=== PATIENT | female | born 1980 | race Caucasian/White ===

== ENCOUNTER 2016-07-15 05:57 | Emergency (ER) | payer OTHER ==
[~2016-07-15] VITALS: Ht 167.6 cm; Wt 99.8 kg
[~2016-07-15 05:57] MED LIST: AMOXIL500 MG PO; ANTIVERT 12.512.5 MG PO; BACTRIM DS 8001 TAB PO; ZOFRAN ODT4 MG SL
--- NOTE | 2016-07-15 06:20 | ED GI/GU/ABDOMINAL COMPLAINT ---
History of Present Illness General Chief Complaint: General Adult Stated Complaint: "HAVEN'T BEEN ABLE TO MOVE BOWELS IN 6 DAYS" PERPT Source: patient, family, old records Exam Limitations: no limitations Vital Signs & Intake/Output Vital Signs & Intake/Output Vital Signs Date Time Temp Pulse Resp B/P B/P Pulse O2 O2 Flow FiO2 Mean Ox Delivery Rate 07/15 1103 98.5 85 20 122/80 97 Room Air 07/15 0830 98.3 88 20 124/78 96 Room Air 07/15 0623 98.0 97 22 115/84 95 Room Air Allergies Coded Allergies: NO KNOWN ALLERGIES (12/13/13) Reconcile Medications Amoxicillin (Amoxil) 500 MG CAP 1 TAB PO BID CELLULITIS Meclizine (Antivert) 12.5 MG TABLET 1 TAB PO TID VERTIGO Ondansetron (Zofran Odt) 4 MG TAB.RAPDIS 1 TAB SL Q8 NAUSEA Sulfamethoxazole/Trimethopri (Bactrim Ds 800 MG-160 MG) 1 TAB TAB 1 TAB PO BID CELLULITIIS Triage Nurses Notes Reviewed? yes ? N Is pt currently ? No HPI: Patient had a cervical fusion performed just over a week ago. Patient was taking pain medication but then it began to make her constipated so she stopped taking them and began taking laxatives. Patient has still been unable to her bowels. Patient states that she has not moved her bowels in the past 6 days. She is now getting crampy abdominal pain left lower quadrant. The pain is constant. The pain radiates into her rectal area. Pain is 10 out of 10. There is no nausea or vomiting. (RAHUL KAUFMAN,JM Copeland) Past History Travel History Traveled to [place] past 21 day No Medical History Any Pertinent Medical History? none Surgical History Surgical History: spinal fusion Psychosocial History What is your primary language Swedish Tobacco Use: Never used ETOH Use: occasional use Illicit Drug Use: denies illicit drug use Family History Hx Contributory? No (RAHUL KAUFMAN,JM Copeland) Review of Systems Review of Systems Constitutional: Reports: no symptoms. EENTM: Reports: no symptoms. Respiratory: Reports: no symptoms. Cardiovascular: Reports: no symptoms. GI: Reports: see HPI, abdominal pain. Genitourinary: Reports: no symptoms. Musculoskeletal: Reports: no symptoms. Skin: Reports: no symptoms. Neurological/Psychological: Reports: no symptoms. Hematologic/Endocrine: Reports: no symptoms. Immunologic/Allergic: Reports: no symptoms. All Other Systems: Reviewed and Negative (RAHUL KAUFMAN,JM Copeland) Physical Exam Physical Exam General Appearance: well developed/nourished, alert, awake, anxious, severe distress Head: atraumatic, normal appearance Eyes: Bilateral: PERRL, EOMI. Ears, Nose, Throat, Mouth: hearing grossly normal, moist mucous membrane Neck: normal inspection, supple, full range of motion Respiratory: normal breath sounds, chest non-tender, no respiratory distress, lungs clear Cardiovascular: regular rate/rhythm, normal peripheral pulses Gastrointestinal: normal bowel sounds, soft, non-tender, no organomegaly Back: normal inspection, normal range of motion Extremities: normal range of motion Neurologic/Psych: no motor/sensory deficits, awake, alert, oriented x 3, normal mood/affect Skin: intact, normal color, warm/dry Core Measures ACS in differential dx? No Severe Sepsis Present: No Septic Shock Present: No (RAHUL KAUFMAN,JM Copeland) Progress Differential Diagnosis: bowel obstruction, colon cancer, SBO Plan of Care: Orders Procedure Date/time Status Enema 07/15 114 Active Enema 07/15 618 Active URINALYSIS 07/15 618 Complete HUMAN BETA HCG SCREEN 07/15 618 Complete COMPREHENSIVE METABOLIC PANEL 07/15 618 Complete CBC WITHOUT DIFFERENTIAL 07/15 618 Complete Laboratory Tests 07/15/16 0800: Urine Color YEL, Urine Clarity CLEAR, Urine pH 7.0, Ur Specific [place] 1.010, Urine Protein NEG, Urine Ketones NEG, Urine Nitrite NEG, Urine Bilirubin NEG, Urine Urobilinogen 0.2, Ur Leukocyte Esterase NEG, Ur Microscopic SEDIMENT EXAMINED, Urine RBC 1-3, Urine WBC 1-3 H, Ur Epithelial Cells RARE, Urine Bacteria FEW H, Micro UA Comment TRICHOMONAS SEEN H, Urine Hemoglobin TRACE- INTACT, Urine Glucose NEG 07/15/16 0709: Anion Gap 12, Estimated GFR > 60, BUN/Creatinine Ratio 11.4, Glucose 114 H, Calcium 8.7, Total Bilirubin 0.5, AST 17, ALT 41, Alkaline Phosphatase 99, Total Protein 6.4, Albumin 3.5, Globulin 2.9, Albumin/Globulin Ratio 1.2, Total Beta HCG NEGATIVE, CBC w Diff MAN DIFF ORDERED, RBC 4.86, MCV 90.2, MCH 29.3, RDW 12.4, MPV 8.8, Gran % 74.9, Lymphocytes % 15.2 L, Monocytes % 7.1, Eosinophils % 2.3, Basophils % 0.5, Absolute Granulocytes 12.7 H, Absolute Lymphocytes 2.6, Absolute Monocytes 1.2 H, Absolute Eosinophils 0.4, Absolute Basophils 0.1, Platelet Estimate ADEQUATE, Normocytic RBCs VERIFIED, Normochromic RBCs VERIFIED , PUBS MCHC 32.5 L Initial ED EKG: none Hand-Off Endorsed To: HAZEL KAUFMAN,CHEYANNE Henao Endorsed Time: 0700 Pending: CT, labs Comments: Patient sister very concerned because the mother just recently from cancer and her symptoms started with severe constipation. (RAHUL KAUFMAN,JM Copeland) Diagnostic Imaging: Discussed w/RAD: CT Scan. Radiology Impression: PATIENT: LIOR JEWELL PRESENT AGE: 35 PATIENT ACCOUNT NO: [id number] : 78 LOCATION: [facility] ORDERING PHYSICIAN: CHEYANNE OLIVA MD SERVICE DATE: 07/15/16 EXAM TYPE: CAT - CT ABD & PELVIS W ORAL & IV CO EXAMINATION: CT ABDOMEN AND PELVIS WITH CONTRAST CLINICAL INFORMATION: Constipation. Family history of colon cancer. COMPARISON: Pelvis CT 09/12/2007. TECHNIQUE: Multidetector volumetric imaging was performed of the abdomen and pelvis before and after the IV administration of 95 mL of Optiray 320 intravenous contrast. No contrast reaction is reported on the paperwork provided. Sagittal and coronal reformatted images were obtained on the technologist's workstation. DLP: 1433 mGy-cm. FINDINGS: There is discoid atelectasis inferiorly in the right middle lobe and in the costophrenic angle right lower lobe posterior medially. LUNGS: Lung bases are otherwise clear. There are 2 under 1 cm low-density lesions superiorly in the right lobe of the liver too small for definitive characterization both of which most likely represent small cysts. SPLEEN: Spleen appears unremarkable. PANCREAS, GALLBLADDER, AND BILIARY TREE: Unremarkable. There is an indeterminate 4.0 x 3.5 cm left adrenal lesion with Hounsfield unit measurements in the 50s. RIGHT ADRENAL GLAND AND KIDNEYS: Unremarkable. URETERS AND URINARY BLADDER: Unremarkable. RECTOSIGMOID: Is stool-filled. Remaining colon is also stool- filled. APPENDIX: Not definitively identified. No inflammatory changes are seen in the right lower quadrant. There is an 8.8 x 5.3 x 5.5 cm left adnexal cyst. There is a small fat-containing right adnexal lesion measuring 1.1 cm suggesting a small underlying dermoid. Uterus appears unremarkable. There is no intraperitoneal free fluid or lymphadenopathy. Imaging through the retroperitoneum is unremarkable without evidence of significant atherosclerotic changes, aneurysm, or lymphadenopathy. There are degenerative changes in the left lumbar spine most notably in the lower 2 levels with mild grade 1 anterolisthesis of L4 on L5 assuming 5 lumbar type vertebra. Anterior abdominal wall: There is a tiny periumbilical hernia containing only mesenteric fat. IMPRESSION: 1. Subsegmental atelectasis right middle lobe and left lower lobe. 2. There are 2 under 1 cm hypodensities in the right lobe of the liver, likely small cysts. 3. A 4 cm maximal dimension left adrenal nodule is indeterminate but likely benign. There are various recommendations for management and followup. Based upon a combination of expert imaging consensus and science center display builder input (AJR :206,August 2015) if the patient has no known malignancy hormonal evaluation is recommended. Some of the adrenal lesions of this size secrete hormones including cortisol. Annual hormonal testing for [place] syndrome has been suggested for 4 years. Repeat imaging may be obtained in 12 months. MR imaging could also be performed to further evaluate. 4. Colon is stool-filled. 5. Moderate-sized left adnexal cyst, small fat-containing right adnexal lesion. MR imaging and/or follow-up ultrasound imaging should be considered. METAL WEATHER STRIPPER consultation should also be considered. 6. Degenerative changes lower lumbar spine. DICTATED BY: JUAN SMITH MD DATE/TIME DICTATED:07/15/161049 FILM MASKER:ASHWINI DATE/TIME TRANSCRIBED:07/15/161049 CONFIDENTIAL, DO NOT COPY WITHOUT APPROPRIATE AUTHORIZATION. <Electronically signed in Other Vendor System> SIGNED BY: JUAN SMITH MD 07/15/16 1146 Comments: 07/15/2016 7:10:37 AM patient signed out to me by Dr. Hernández at shift oversize load pilot escort. 07/15/2016 11:41:31 AM I have updated Lior on her test results we are still awaiting the CAT scan report. She complains of the need to have a bowel movement but she is unable to do so here in the emergency department despite an enema here and the use of [id number] preparations such as MiraLAX prior. I will order a soapsuds enema. 07/15/2016 12:20:23 PM Lior has had a large bowel movement here in the emergency department. I feel she is now capable of returning home on a bowel regimen and outpatient follow-up with her primary care physician. (HAZEL KAUFMAN,CHEYANNE Henao) Departure Departure Condition: Stable Referrals: KIRA KAUFMAN,CAROLINA Copeland (PCP/Family) Departure Forms: Customer Survey General Discharge Information (RAHUL KAUFMAN,JM Copeland) Departure Disposition: HOME OR SELF CARE Clinical Impression Primary Impression: Lower abdominal pain, unspecified Secondary Impressions: Constipation Qualifiers: Constipation type: drug induced constipation Qualified Code: K59.03 - Drug induced constipation Lesion of adrenal gland Liver lesion Trichomonas infection Additional Instructions: Metronidazole as prescribed. Prescriptions: Current Visit Scripts Metronidazole (Flagyl) 1 TAB PO Q6 #28 TAB (HAZEL KAUFMAN,CHEYANNE Henao)
[2016-07-15 07:37] LABS: ABSOLUTE BASOPHIL COUNT 0.1 /CUMM (0.0-0.2); ABSOLUTE EOSINOPHIL COUNT 0.4 /CUMM (0.0-0.7); ABSOLUTE GRANULOCYTE CT 12.7 /CUMM (1.4-6.5); ABSOLUTE LYMPH COUNT 2.6 /CUMM (1.2-3.4); ABSOLUTE MONOCYTE COUNT 1.2 /CUMM (0.10-0.60); BASOPHIL % 0.5 % (0.0-2.0); EOSINOPHIL % 2.3 % (0-5); GRANULOCYTE % 74.9 % (42.2-75.2); HEMATOCRIT 43.8 % (37-47); MEAN CORPUSCULAR HGB 29.3 PG (27.0-31.0); MEAN CORPUSCULAR HGB CONC 32.5 G/DL (33.0-37.0); MEAN CORPUSCULAR VOLUME 90.2 FL (81.0-99.0); MEAN PLATELET VOLUME 8.8 FL (7.4-10.4); PLATELET COUNT 274 /CUMM (130-400); RBC DISTRIBUTION WIDTH 12.4 % (11.5-14.5); RED BLOOD CELL CT 4.86 /CUMM (4.20-5.40); WHITE BLOOD CELL COUNT 16.9 /CUMM (4.8-10.8)
[2016-07-15 11:03] VITALS: BP 122/80
--- NOTE | 2016-07-15 11:46 | CT SCAN REPORT ---
EXAMINATION: CT ABDOMEN AND PELVIS WITH CONTRAST CLINICAL INFORMATION: Constipation. Family history of colon cancer. COMPARISON: Pelvis CT 09/12/2007. TECHNIQUE: Multidetector volumetric imaging was performed of the abdomen and pelvis before and after the IV administration of 95 mL of Optiray 320 intravenous contrast. No contrast reaction is reported on the paperwork provided. Sagittal and coronal reformatted images were obtained on the technologist's workstation. DLP: 1433 mGy-cm. FINDINGS: There is discoid atelectasis inferiorly in the right middle lobe and in the costophrenic angle right lower lobe posterior medially. LUNGS: Lung bases are otherwise clear. There are 2 under 1 cm low-density lesions superiorly in the right lobe of the liver too small for definitive characterization both of which most likely represent small cysts. SPLEEN: Spleen appears unremarkable. PANCREAS, GALLBLADDER, AND BILIARY TREE: Unremarkable. There is an indeterminate 4.0 x 3.5 cm left adrenal lesion with Hounsfield unit measurements in the 50s. RIGHT ADRENAL GLAND AND KIDNEYS: Unremarkable. URETERS AND URINARY BLADDER: Unremarkable. RECTOSIGMOID: Is stool-filled. Remaining colon is also stool-filled. APPENDIX: Not definitively identified. No inflammatory changes are seen in the right lower quadrant. There is an 8.8 x 5.3 x 5.5 cm left adnexal cyst. There is a small fat-containing right adnexal lesion measuring 1.1 cm suggesting a small underlying dermoid. Uterus appears unremarkable. There is no intraperitoneal free fluid or lymphadenopathy. Imaging through the retroperitoneum is unremarkable without evidence of significant atherosclerotic changes, aneurysm, or lymphadenopathy. There are degenerative changes in the left lumbar spine most notably in the lower 2 levels with mild grade 1 anterolisthesis of L4 on L5 assuming 5 lumbar type vertebra. Anterior abdominal wall: There is a tiny periumbilical hernia containing only mesenteric fat. IMPRESSION: 1. Subsegmental atelectasis right middle lobe and left lower lobe. 2. There are 2 under 1 cm hypodensities in the right lobe of the liver, likely small cysts. 3. A 4 cm maximal dimension left adrenal nodule is indeterminate but likely benign. There are various recommendations for management and followup. Based upon a combination of expert imaging consensus and head porter baggage input (AJR :206August 2015) if the patient has no known malignancy hormonal evaluation is recommended. Some of the adrenal lesions of this size secrete hormones including cortisol. Annual hormonal testing for [place] syndrome has been suggested for 4 years. Repeat imaging may be obtained in 12 months. MR imaging could also be performed to further evaluate. 4. Colon is stool-filled. 5. Moderate-sized left adnexal cyst, small fat-containing right adnexal lesion. MR imaging and/or follow-up ultrasound imaging should be considered. GLOVE OPERATOR consultation should also be considered. 6. Degenerative changes lower lumbar spine.
[2016-07-15] MEDS ORDERED: FLAGYL500 MG PO (12:22)
== END 2016-07-15 12:35 ==
LOC: ERH 05:57
PROVIDERS: Emergency Medicine
DX: K59.00 Constipation, unspecified (principal); I89.9 Noninfective disorder of lymphatic vessels and lymph nodes, unspecified; K76.9 Liver disease, unspecified; A59.9 Trichomoniasis, unspecified
CPT/HCPCS: 74177; 81001; 96361; 96374; J1885

== ENCOUNTER 2016-09-07 09:06 | Emergency (ER) | payer OTHER ==
[~2016-09-07] VITALS: Ht 175.3 cm; Wt 113.4 kg
[~2016-09-07 09:06] MED LIST changes: +FLAGYL500 MG PO
--- NOTE | 2016-09-07 09:42 | ED UPPER/LOWER EXTREMITY COMPL ---
History of Present Illness General Chief Complaint: Hip Injury Stated Complaint: RIGHT HIP PAIN THAT RADIATES DOWN RLE, X 7 DAYS Source: patient Exam Limitations: no limitations Vital Signs & Intake/Output Vital Signs & Intake/Output Vital Signs Date Time Temp Pulse Resp B/P B/P Pulse O2 O2 Flow FiO2 Mean Ox Delivery Rate 09/07 1152 97.3 77 20 142/89 98 Room Air 09/07 1044 97.0 88 18 140/72 96 Room Air 09/07 0911 97.2 127 28 97 Room Air Room Air Allergies Coded Allergies: NO KNOWN ALLERGIES (12/13/13) Reconcile Medications Amoxicillin (Amoxil) 500 MG CAP 1 TAB PO BID CELLULITIS Meclizine (Antivert) 12.5 MG TABLET 1 TAB PO TID VERTIGO Methylprednisolone. (Medrol) 4 MG TAB.DS.PK 1 DP PO AD hip pain 6 on day 1 then reduce by one tablet daily until gone Metronidazole (Flagyl) 500 MG TABLET 1 TAB PO Q6 URINE INFECTION Ondansetron (Zofran Odt) 4 MG TAB.RAPDIS 1 TAB SL Q8 NAUSEA Sulfamethoxazole/Trimethopri (Bactrim Ds 800 MG-160 MG) 1 TAB TAB 1 TAB PO BID CELLULITIIS Triage Note: TRIAGE: 35 Y/O FEMALE PRESENTS C/O 12/30 RIGHT THIGH PAIN X1 WEEK. REPORTS "I'VE BEEN TAKING PAIN MEDICINE AND MUSCLE RELAXERS FOR THE LAST WEEK - I CAN'T PEE, I CAN'T SLEEP, I CAN'T DO ANYTHING BUT LAY THERE ON MY STOMACH." REFUSES TO SIT IN TRIAGE. ABLE TO AMBULATE WITHOUT MUCH DIFFICULTY. Triage Nurses Notes Reviewed? yes Onset: Abrupt Duration: day(s): (1), week(s):, constant, continues in ED Severity: moderate, severe Pain/Injury Location: Right: Hip. No Modifying Factors: none : No Patient currently breastfeeds: No HPI: 35-year-old female comes into emergency room with complaints of right hip pain/ leg pain. Patient reports that the pain is located in the right side of her hip that radiates down to her knee but does not cross her knee. It is located on the side of her leg. She denies any falls or trauma. She reports some associated numbness tingling with that. Pain with walking. Denies any low back pain. No urinary bowel dysfunction. Denies any other associated symptoms. Patient reports that she's been taking 20 Motrin tabs a day with no relief for the past week. When asked further about whether she's been taking actually 20 tabs she says yes she's been taking 16-20 tabs daily. (BETO DE SOUZA) Past History Travel History Traveled to [place] past 21 day No Medical History Any Pertinent Medical History? 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 No (BETO DE SOUZA) Review of Systems Review of Systems Constitutional: Reports: no symptoms. EENTM: Reports: no symptoms. Respiratory: Reports: no symptoms. Cardiovascular: Reports: no symptoms. Gastrointestinal/Abdominal: Reports: no symptoms. Genitourinary: Reports: no symptoms. Musculoskeletal: Reports: see HPI. Skin: Reports: no symptoms. Neurological/Psychological: Reports: no symptoms. Hematologic/Endocrine: Reports: no symptoms. Immunological: Reports: no symptoms. All Other Systems: Reviewed and Negative (BETO DE SOUZA) Physical Exam Physical Exam General Appearance: well developed/nourished, mild distress Head: atraumatic Eyes: Bilateral: normal appearance. Ears, Nose, Throat: normal ENT inspection, hearing grossly normal Neck: normal inspection, supple Cardiovascular/Respiratory: regular rate/rhythm Back: normal inspection Hip Right: normal range of motion, tenderness Neurologic/Tendon: normal sensation, normal motor functions, normal tendon functions, responds to pain, no evidence tendon injury, no pulse deficit Skin: intact, normal color, warm/dry Lymphatic: no anterior cervical ron (BETO DE SOUZA) Progress Differential Diagnosis: cellulitis, contusion, dislocation, fracture, gout, sprain, tendon injury, myalgia paresthetica Plan of Care: Orders Procedure Date/time Status Add-on Test (ER Only) 09/[address] LUMB SPINE WO IV CONTRAST 09/07 1137 Active ED CRISIS PSYCH CONSULT 09/07 1123 Active Add-on Test (ER Only) 09/07 1116 Active ED CRISIS PSYCH CONSULT 09/07 1116 Active HUMAN BETA HCG SCREEN 09/07 1020 Complete ETHANOL 09/07 1020 Complete COMPREHENSIVE METABOLIC PANEL 09/07 0942 Complete CBC WITHOUT DIFFERENTIAL 09/07 0942 Complete Current Medications Sig/Alice Start time Last Medication Dose Stop Time Status Admin Hydromorphone HCl 2 MG ONCE ONE 09/07 1500 UNVr (Dilaudid) 09/07 1501 Laboratory Tests 09/07/16 1116: Methadone Screen Cancelled, Barbiturate Screen Cancelled, Ur Phencyclidine Scrn Cancelled, Amphetamines Screen Cancelled, U Benzodiazepines Scrn Cancelled, Urine Cocaine Screen Cancelled, Urine Cannabis Screen Cancelled, Urine Test Cancelled 09/07/16 1020: Anion Gap 9, Estimated GFR > 60, BUN/Creatinine Ratio 16.7, Glucose 82, Calcium 9.0, Total Bilirubin 0.6, AST 20, ALT 52, Alkaline Phosphatase 75, Total Protein 6.1 L, Albumin 3.5, Globulin 2.6, Albumin/Globulin Ratio 1.3, Total Beta HCG NEGATIVE, CBC w Diff NO MAN DIFF REQ, RBC 4.36, MCV 88.4, MCH 29.2, RDW 13.5, MPV 8.7, Gran % 60.8, Lymphocytes % 26.5, Monocytes % 9.1, Eosinophils % 2.8, Basophils % 0.8, Absolute Granulocytes 6.4, Absolute Lymphocytes 2.8, Absolute Monocytes 1.0 H, Absolute Eosinophils 0.3, Absolute Basophils 0.1, PUBS MCHC 33.0, Serum Alcohol < 10.0 Diagnostic Imaging: Viewed by Me: Radiology Read. Discussed w/RAD: Radiology Read. Radiology Impression: SERVICE DATE: 09/07/16 EXAM TYPE: RAD - XRY-HIP 2-3 VIEWS, RIGHT EXAMINATION: XR HIP, RIGHT CLINICAL INFORMATION: Right hip and leg pain. Patient states right anterior thigh pain and bilateral hip pain. No trauma. COMPARISON: CT scan of the pelvis dated 09/10/2007. TECHNIQUE: Two views of the right hip. FINDINGS: No acute fracture or dislocation is seen. 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 There is mild degenerative change in the right hip joint with mild superior joint space narrowing, acetabular roof spurring and tiny cystic changes seen. Findings are similar to the previous CT scan. Included portions of the right sacroiliac joint and right hemipelvis are otherwise unremarkable. IMPRESSION: 1. No acute fracture or dislocation. 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 2. Mild degenerative changes in the right hip joint. DICTATED BY: SHARITA KAUFMAN,NIKKI Scott DATE/TIME DICTATED:09/07/161016 E BUSINESS MANAGER:ASHWINI DATE /TIME TRANSCRIBED:09/07/161016 CONFIDENTIAL, DO NOT COPY WITHOUT APPROPRIATE AUTHORIZATION. Hand-Off Endorsed To: CHEYANNE OLIVA MD Endorsed Time: 9731 Comments: 09/07/2016 11:20:31 AM Patient was offered pain medications multiple times in the emergency room. She reports that the NSAIDs ibuprofen at home have not been helping. She has been taking 20 tabs daily. We did not want to give her any further ibuprofen due to the amount that she's been taking on a daily basis. I offered her Tylenol. I offered her narcotics. She declined both of these. She reports that the narcotics have made her constipated in the past. I told her she can take a stool softener as well as some fiber increase water intake as well as some MiraLAX. The x-ray results were discussed with the patient in regards to possible old fracture but she denied any trauma that she was aware of. Patient was very emotional and crying on the stretcher. She was offered crutches. She did not want any of these options. She continued to cry. I asked the patient is she had any thoughts of wanting to hurt her self. She reported "I do not want to live anymore". She then proceeded to call me a " f* cking dushgbag". Patient tried to get up and then leave even though she reports that she has not been able to walk on her leg and she had no difficulty walking. I told her she cannot leave due to her comments and her emotional state. Patient then became loud and belligerent in the hallway. Order #7 was called. Patient was then escorted down to a room. (BETO DE SOUZA) Comments: 09/07/2016 11:35:50 AM I evaluated Yelena because she became very upset at discharge. She was evaluated for right lateral thigh pain. She feels that she was treated inappropriately. I have evaluated Yelena myself. Workup and treatment pending. In particular, the patient was very concerned about constipation with narcotic pain relievers. She has had severe difficulties with constipation with the use of Percocet in the past. She seems amenable however to a different narcotic pain reliever and a bowel regimen to prevent constipation. 09/07/2016 2:24:30 PM Yelena is feeling better and appears clinically much more comfortable. I have just spoken with [facility] regarding this patient's CAT scan report. They will look into having the report posted to the system. 09/07/2016 3:00:42 PM I have updated Yelena on her CAT scan report. Additional Dilaudid ordered. Plan pain control and neurosurgical follow-up. (HAZEL KAUFMAN,CHEYANNE Henao) Departure Departure Disposition: HOME OR SELF CARE Condition: Stable Referrals: KIRA KAUFMAN,CAROLINA Copeland (PCP/Family) Additional Instructions: Take Medrol Dosepak as prescribed. Take Tylenol as needed at home. Please go over all results of today's visit with your primary care doctor. Contact your primary care doctor to let them know you were here in the emergency room. There may be nonspecific findings which may not be related to your visit today here in the emergency room but may require further evaluation and chronic monitoring by your primary care doctor. If you had a laceration today the chance of foreign body always remains. You should follow-up with your primary care doctor for recheck in 3-5 days for a wound check. If you had an x-ray done there is a chance that a fracture could have been missed on initial read and you should follow-up with your primary care doctor for repeat x-rays if symptoms persist. If your blood pressure was elevated here in the emergency room please have rechecked by her primary care doctor within the next 48 hours by your primary care doctor. If you were prescribed a narcotic here in the emergency room or any type of controlled substances you're not allowed to drive while taking this medication or operate any type of heavy machinery. Narcotics can make you feel lightheaded dizziness nausea and can cause constipation. You may need to picking machine operator helper a stool softener. Thank you for choosing [facility] emergency room. Please return to the emergency room immediately if you have any other concerns worsening of symptoms. Departure Forms: Customer Survey General Discharge Information (MALIKA LUND,BETO) Departure Clinical Impression Primary Impression: Lumbar radiculopathy, acute Prescriptions: Current Visit Scripts Indomethacin 1 CAP PO TID #30 CAP with food Hydromorphone HCl (Dilaudid) 2 TAB PO Q6P PRN PAIN #20 TAB Linaclotide (Linzess) 1 CAP PO DAILY #7 CAP (HAZEL KAUFMAN,CHEYANNE Henao)
--- NOTE | 2016-09-07 10:24 | RADIOLOGY REPORT ---
EXAMINATION: XR HIP, RIGHT CLINICAL INFORMATION: Right hip and leg pain. Patient states right anterior thigh pain and bilateral hip pain. No trauma. COMPARISON: CT scan of the pelvis dated 09/10/2007. TECHNIQUE: Two views of the right hip. FINDINGS: No acute fracture or dislocation is seen. 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 There is mild degenerative change in the right hip joint with mild superior joint space narrowing, acetabular roof spurring and tiny cystic changes seen. Findings are similar to the previous CT scan. Included portions of the right sacroiliac joint and right hemipelvis are otherwise unremarkable. IMPRESSION: 1. No acute fracture or dislocation. 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 2. Mild degenerative changes in the right hip joint.
[2016-09-07 10:37] LABS: ABSOLUTE BASOPHIL COUNT 0.1 /CUMM (0.0-0.2); ABSOLUTE EOSINOPHIL COUNT 0.3 /CUMM (0.0-0.7); ABSOLUTE GRANULOCYTE CT 6.4 /CUMM (1.4-6.5); ABSOLUTE LYMPH COUNT 2.8 /CUMM (1.2-3.4); BASOPHIL % 0.8 % (0.0-2.0); EOSINOPHIL % 2.8 % (0-5); GRANULOCYTE % 60.8 % (42.2-75.2); HEMATOCRIT 38.6 % (37-47); MEAN CORPUSCULAR HGB 29.2 PG (27.0-31.0); MEAN CORPUSCULAR VOLUME 88.4 FL (81.0-99.0); MEAN PLATELET VOLUME 8.7 FL (7.4-10.4); PLATELET COUNT 229 /CUMM (130-400); RBC DISTRIBUTION WIDTH 13.5 % (11.5-14.5); RED BLOOD CELL CT 4.36 /CUMM (4.20-5.40); WHITE BLOOD CELL COUNT 10.4 /CUMM (4.8-10.8)
[2016-09-07] MEDS ORDERED: MEDROL4 M2 PO (11:13)
[2016-09-07 11:52] VITALS: BP 142/89
--- NOTE | 2016-09-07 11:53 | ED PSY CRISIS COLLATERAL NOTE ---
Collateral Note Collateral Note Family/Inform/Ghazal Contacts: Phone contact with pt's sister, Speedy Mcclain. Pt had surgery three weeks ago and had 3 disc replaced. Pt is frustrated and upset because she is in chronic pain. "She is a high functioning person and she wants to get back to work" Speedy states the pt is constantly saying "I don' t want to live in pain". According to Win, she doesn't believe that the pt is suicidal, "no she doesn't want to kill herself, she lives with me I know this"
--- NOTE | 2016-09-07 14:20 | ED PSYCH CRISIS CONSULTATION ---
Crisis Consult Basic Assessment Date of Consult: 09/07/16 Responsible Person/Accompanied By: Self/Accompanied by 18 year old daughter Insurance Authorization: Insurance #1: Insurance name: HARSHA Cabral C&A Phone number: Policy number: [id number] Group number: Authorization number: ED Provider: Patient's ED Provider: BETO DE SOUZA Primary Care Physician: Patient's PCP: CAROLINA MALONE MD PCP's Current Psychiatrist: Kalpesh Esquivel MD Chief Complaint: Hip Injury Patient's Quote: "I need help to manage pain" Present Illness: Pt is a 35 year old single female walked into the ED with her daughter. Pt came to the ED for chronic pain. Pt said she has been tolerating the pain since her surgery in June, and she couldn't take it anymore so she came here "I need help to manage pain. Pt reports upon being evaluated by the ED PA, he was "Unsympatetic and said he couldn't help me". "Here I am crying hysterically in pain and I told him I get constipated from the narcotic pain medications I have". Pt made the statement "I don't want to live like this anymore" and the PA submitted a 2 crisis consultations that stated (1) "Suicidal Ideation" (2) "pt said that she no longer wants to live". According to the pt, she made the statement of not wanting to live like this in the content of enduring chronic pain, not that she was suicidal. Pt was laying flat on her stomach in room 10 on a hospital bed. She was tearful with tears running down her face, visibly uncomfortable in pain. Her daughter sitting next to her shared "my mother is in pain and they're not helping her". "No I'm not suicidal, I'm in pain and it's like this for a long time" Pt denies SI/HI, no evidence of psychosis. Pt did not make any statements of hopelessness Pt denies substance use. Pt shared with this clinician future oriented goals, my daughter just graduated from High School and I'm getting her ready for college. I just got a really good job, that I want to keep and because of this pain, I can't work like this'. Pt has multiple family supports. Pt lives with her sister Speedy Mcclain. Please see collateral note. resaw feeder contacted Speedy who said the pt is frustrated and upset that she is unable to manage her pain, "she does not want to kill herself". Pt feels she was not treated appropriate for her complaint of having pain. Pt felt the PA did not listen and did not show empathy regarding her complaint of chronic pain. Checked in with the pt after she was seen by Dr. Lai who gave her Dilaudid. "I feel so much better". Pt was calm. engaging and cooperative. Patient's Address: [place] [address] Other Phone Number: Who Do You Live With? Sister Family/Informants Interviewed: See collateral note Allergies - Coded Allergies: NO KNOWN ALLERGIES (12/13/13) Current Medications - Scheduled Medications Amoxicillin (Amoxil) 500 MG CAP 1 TAB PO BID CELLULITIS #20 Prescribed by PARTH TAFOYA on 12/11/13 Meclizine (Antivert) 12.5 MG TABLET 1 TAB PO TID VERTIGO #20 TAB Prescribed by COMFORT ODEN on 12/13/13 Methylprednisolone. (Medrol) 4 MG TAB.DS.PK 1 DP PO AD hip pain #1 DP Prescribed by BETO DALY PA-C on 09/07/16 Metronidazole (Flagyl) 500 MG TABLET 1 TAB PO Q6 URINE INFECTION #28 TAB Prescribed by CHEYANNE LAI MD on 07/15/16 Ondansetron (Zofran Odt) 4 MG TAB.RAPDIS 1 TAB SL Q8 NAUSEA #15 TAB Prescribed by COMFORT ODEN on 12/13/13 Sulfamethoxazole/Trimethopri (Bactrim Ds 800 MG-160 MG) 1 TAB TAB 1 TAB PO BID CELLULITIIS #14 TAB Prescribed by PARTH TAFOYA on 12/11/13 Laboratory Results: Laboratory Tests 09/07/16 1116: Methadone Screen Cancelled, Barbiturate Screen Cancelled, Ur Phencyclidine Scrn Cancelled, Amphetamines Screen Cancelled, U Benzodiazepines Scrn Cancelled, Urine Cocaine Screen Cancelled, Urine Cannabis Screen Cancelled, Urine Test Cancelled 09/07/16 1020: Anion Gap 9, Estimated GFR > 60, BUN/Creatinine Ratio 16.7, Glucose 82, Calcium 9.0, Total Bilirubin 0.6, AST 20, ALT 52, Alkaline Phosphatase 75, Total Protein 6.1 L, Albumin 3.5, Globulin 2.6, Albumin/Globulin Ratio 1.3, Total Beta HCG NEGATIVE, CBC w Diff NO MAN DIFF REQ, RBC 4.36, MCV 88.4, MCH 29.2, RDW 13.5, MPV 8.7, Gran % 60.8, Lymphocytes % 26.5, Monocytes % 9.1, Eosinophils % 2.8, Basophils % 0.8, Absolute Granulocytes 6.4, Absolute Lymphocytes 2.8, Absolute Monocytes 1.0 H, Absolute Eosinophils 0.3, Absolute Basophils 0.1, PUBS MCHC 33.0, Serum Alcohol < 10.0 Past History Past Medical History Neurological: NONE EENT: NONE Cardiovascular: NONE Respiratory: NONE Gastrointestinal: NONE Hepatic: NONE Renal: NONE Musculoskeletal: NONE Psychiatric: NONE, chronic pain disorder Endocrine: NONE Blood Disorders: NONE Cancer(s): NONE 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 Pt is employed and likes her job and want to be well enough to get back to work. Physical Limitations (Interventions): Chronic pain that is debilitating. Psychiatric Treatment History Psych Treatment Psychiatric Treatment No Inpatient Treatment Yes (2004) Outpatient Treatment No Location of Treatment [facility] Reason for Treatment Bipolar Disorder Unspecified Dates of Treatment 2004 Response to Treatment Stable Diagnosis by History: Bipolar Disorder Unspecified Substance Use/Abuse History Drug Use/Abuse Substances Used/Abused No First Use n/a Last Used n/a How much used/taken n/a How often n/a For how long n/a Route of use n/a Substance Abuse Treatment Substance Abuse Treatment Past Substance Abuse [place] No Inpatient Treatment No Outpatient Treatment No Location of Treatment n/a Reason for Treatment n/a Dates of Treatment n/a Response to Treatment n/a Current Mental Status Mental Status Orientation: Person, Place, Situation Affect: Anxious Speech: WNL Neuro-vegetative: Sleep Disturbance Appearance Appearance- Dress/Hygiene: Clean, groomed Behaviors Thought Process: WNL Thought Content: Somatic, WNL Memory: WNL Insight: WNL SI/HI Risk Assessment Past Suicidal Ideation/Attempts No Current Suicidal Ideation/Att No Past Homicidal Ideation/Att: No Current Homicidal Ideation/Attempts No Degree of Intent: None Danger To: n/a Gravely Disabled: n/a Risk Factors: chronic/serious med cond. Lethality Ratin PTSD Checklist PTSD Done? patient declined ED Management Sitter: No Restraints: No DSM5/PS Stressors/Medical Prob Diagnosis' (DSM 5, Stressors, Medical): F09. Unspecified Mental Disorder Due to Another Medical Condition. Distress or impairment in social, occupational or other important areas for functioning predominate but do not meet the full criteria for any specific mental disorder due to another medical condition. Current GAF: 30 Departure Disposition Psych Medical Clearance Date: 09/07/16 Medically Cleared at: 1123 Time Started: 1150 Time Ended: 1210 Psychiatrist Consulted: Kalpesh Esquivel MD Date Disposition Established: 09/07/16 Time Disposition Established: 1340 Plan for Disposition - Modality: Remains in the ED Facility: [facility] Follow-up Appt Date: 09/07/16 Follow-Up Appt Time: 1340 Contact: Dr. Miriam Lai Telephone: [phone] Rationale for Disposition: Pt presented to the ED with acute pain. Pt stated she had surgery recently and has had ongoing pain. Pt came to the ED today for help to manage her pain. Pt made the statement "I can't live like this anymore" PA referred pt for crisis consult. Upon evaluating the pt. pt denies SI/HI. Pt denies feeling hoples and had future oriented goals, supportive family and a new job she is motivated to get back to as soon as possible. Pt remains in the ED and is being followed by Dr. Lai. Andrew MALONE MD,CAROLINA Copeland (PCP/Family)
[2016-09-07] MEDS ORDERED: LINZESS145 MC1 PO (15:04)
[2016-09-07] MEDS ORDERED: INDOMETHACIN50 M1 PO (15:04)
[2016-09-07] MEDS ORDERED: DILAUDID2 M1 PO (15:04)
--- NOTE | 2016-09-07 16:31 | CT SCAN REPORT ---
EXAMINATION: CT LUMBAR SPINE WITHOUT CONTRAST CLINICAL INFORMATION: Lumbar radiculopathy. Right lateral thigh pain. COMPARISON: None TECHNIQUE: Helical non-contrast CT images were obtained through the lumbar spine and 1.25 and 2.5 mm axial reconstructions were reviewed along with sagittal and coronal MPRs. DLP: 1181 mGy-cm. FINDINGS: There is normal lumbar lordosis. The vertebral heights are normal. There is grade 1 anterolisthesis L4 over L5. Rest of the vertebral alignment is normal. The T12-L1 disc level appears unremarkable except for mild facet joint hypertrophic changes. The neural foramina are patent bilaterally. At the L1-L2 disc level there is posterior's spondylosis/diffuse bulge complex resulting in mild circumferential canal stenosis. There is underlying bilateral facet joint hypertrophy resulting in mild left neural foraminal narrowing. At L2-L3 disc level there is minimal bulge but no spinal canal stenosis. Mild facet joint arthropathy seen. The neural foramina are bilaterally patent. At L3-L4 disc level there is no significant disc bulge, herniation or spinal stenosis. Mild left neural foraminal narrowing is noted. At L4-L5 disc level there is mild diffuse bulge with moderate to significant facet joint hypertrophy and arthropathy resulting in moderate bilateral neural foraminal narrowing slightly greater on the right. There is mild circumferential spinal canal stenosis. At L5-S1 disc level there is no significant disc bulge, herniation or spinal stenosis. There is moderate right and mild left neural foraminal narrowing from bilateral posterior lateral endplate spondylosis. Bilateral SI joints are symmetrical and unremarkable. No lytic or sclerotic process seen. There is 7.9 x 8.5 cm cyst left adnexa. IMPRESSION: Multilevel degenerative disc changes from L1-L2 through L5-S1 disc level. There is moderate neural foraminal narrowing on the right at L4-L5 and L5-S1 disc level from facet joint arthropathy and bilateral posterolateral spondylosis at the L5-S1 disc level. Grade 1 anterolisthesis L4 over L5 with diffuse pseudo disc bulge and mild circumferential spinal canal stenosis at L4-L5 disc level. Large left adnexal cyst probably ovarian origin.
== END 2016-09-07 15:43 ==
LOC: ERH 09:06
PROVIDERS: Physician Assistant Medical
DX: M54.16 Radiculopathy, lumbar region (principal)
CPT/HCPCS: 73502-RT; 80307; 81025; 96372; G0463; G0480

== ENCOUNTER → 2017-10-14 | Day surgery (SDC) | payer OTHER ==
[~2017-10-14] VITALS: Ht 175.3 cm; Wt 108.9 kg
[~2017-10-14] MED LIST changes: +DILAUDID2 M1 PO; +INDOMETHACIN50 M1 PO; +LINZESS145 MC1 PO; +MEDROL4 M2 PO
--- NOTE | 2017-10-14 17:11 | Operative Report ---
Operative/Inv Procedure Report Surgery Date: 10/14/17 Name of Procedure: Laparoscopic cholecystectomy Pre-Operative Diagnosis: Biliary colic Post-Operative Diagnosis: Same Estimated Blood Loss: less than 50ml Surgeon/Photo Optics Technician: Chilo KAUFMAN,Kunal Flaherty/Mitzi LUND Anesthesia: general endotracheal tube Specimens: Gallbladder Operative Indication: 28-year-old woman early presents with episodic right upper quadrant abdominal pain. There was initial elevation of her LFTs, which have since normalized. Operative/Procedure Note Note: After informed consent patient is brought to the operating room and laid supine. General anesthesia was obtained and her abdomen was prepped and draped. The skin above the umbilicus infiltrated with local anesthesia and a curvilinear incision made sharply. We came down through the subcutaneous tissues bluntly and grasped the fascia with German's. A fasciotomy was created sharply and stay sutures placed. The peritoneum was entered sharply and a blunt Pittman port was placed. Pneumoperitoneum was achieved. 3, 5 mm ports were placed in the epigastrium and right upper quadrant after local anesthesia was instilled and under direct vision the camera. She's placed in reverse Trendelenburg and rotated towards the left. The gallbladder is identified. It was grasped at the dome and retracted towards the head. Infundibulum was then grasped. Adhesions to the undersurface were taken down with blunt and cautery dissection. We dissected both sides the triangle Calot peritoneal tissue with cautery. The artery was medial and its normal anatomic position. It was cauterized medially to allow it to be mobilized away from the duct. There is some modest bleeding from the artery while it was being dissected. Thomson was cleared of areolar tissue with cautery. The arteries and duct were doubly ligated with clips. Gallbladder is removed from the fossa electrocautery. It was placed in Endo Catch bag and cinched up. Right upper quadrant was and suction irrigated normal saline. Hemostasis achieved with cautery. The ports were then removed and the CC: Severiano KAUFMAN,Danie Copeland
== END ==
LOC: STS 01:56
DX: K80.10 Calculus of gallbladder with chronic cholecystitis without obstruction (principal)
CPT/HCPCS: 81025; 88304; J0131; J0690; J1100; J1885; J2250; J2405; J3490